=== PATIENT | male | born 1995 | race Caucasian/White ===

== ENCOUNTER 2018-04-08 13:22 | Emergency (ER) | payer OTHER ==
[2018-04-08] MEDS: PERCOCET 5MG/325MG TAB PO (13:37)
[2018-04-08] MEDS: MORPHINE 2 MG/ML 1ML SYRINGE (J2270) IV (13:39)
== END 2018-04-08 14:35 | disposition home or self-care (01) ==
LOC: M ED 13:22
DX: S70.02XA Contusion of left hip, initial encounter (principal); W17.89XA Other fall from one level to another, initial encounter; Y92.138 Other place on military base as the place of occurrence of the external cause; Y99.1 Military activity; Z88.6 Allergy status to analgesic agent; F17.210 Nicotine dependence, cigarettes, uncomplicated
CPT/HCPCS: J2270

== ENCOUNTER 2019-02-28 05:36 | Emergency (ER) | payer OTHER ==
[~2019-02-28] VITALS: Ht 175.3 cm; Wt 77.3 kg
[~2019-02-28 05:36] MED LIST: IBUP-1022 PO
[2019-02-28] MEDS ORDERED: GNPLIQ60 PO (05:42)
[2019-02-28] MEDS ORDERED: D-ME118L PO (05:42)
[2019-02-28] MEDS ORDERED: IBUPROFEN 600 MG TAB PO ONE (06:15)
[2019-02-28 06:58] LABS: INFLUENZA A AMPLIFICATION NEGATIVE (NEGATIVE); INFLUENZA B AMPLIFICATION NEGATIVE (NEGATIVE)
[2019-02-28 07:09] VITALS: BP 122/77
== END 2019-02-28 07:10 | disposition home or self-care (01) ==
LOC: M ED 05:36
DX: J02.9 Acute pharyngitis, unspecified (principal); R05 Cough; Z88.4 Allergy status to anesthetic agent; F17.210 Nicotine dependence, cigarettes, uncomplicated

== ENCOUNTER 2019-03-01 22:08 | Emergency (ER) | payer OTHER ==
[~2019-03-01] VITALS: Ht 175.3 cm; Wt 77.3 kg
[~2019-03-01 22:08] MED LIST changes: +D-ME118L PO; +GNPLIQ60 PO
[2019-03-02] MEDS ORDERED: AZIT-12 PO (01:34)
[2019-03-02 01:41] VITALS: BP 130/63
[2019-03-02] MEDS ORDERED: AZITHROMYCIN 250 MG TAB PO ONE (01:45)
--- NOTE | 2019-03-02 01:52 | REP ---
Clinical: Cough and shortness of breath . Comparison: None . Technique: PA and lateral. Findings: The mediastinum and cardiac silhouette are normal. The lung denise are clear and without acute consolidation, effusion, or pneumothorax. The skeletal structures are intact and normal. Impression: 1. No acute cardiopulmonary process. Electronically Signed by Alvin Rollins MD 03/02/2019 01:43 A
== END 2019-03-02 01:56 | disposition home or self-care (01) ==
LOC: M ED 22:08
DX: J06.9 Acute upper respiratory infection, unspecified (principal); F17.210 Nicotine dependence, cigarettes, uncomplicated; Z88.6 Allergy status to analgesic agent

== ENCOUNTER 2019-06-19 22:13 | Emergency (ER) | payer OTHER ==
[~2019-06-19] VITALS: Ht 175.3 cm; Wt 75.0 kg
[~2019-06-19 22:13] MED LIST changes: +AZIT-12 PO
[2019-06-19] MEDS ORDERED: DOXY100T (22:22)
[2019-06-19 22:44] LABS: BASO # 0.1 10^3/uL (0.0-0.2); BASO % 0.8 % (0.0-1.0); EOS # 0.2 10^3/uL (0.0-0.5); EOS % 3.3 % (0.0-3.0); HEMATOCRIT 48.8 % (42.0-52.0); HEMOGLOBIN 16.2 g/dl (13.5-17.5); LYMPH # 2.7 10^3/uL (1.5-5.0); MEAN CORPUSCULAR HEMOGLOBIN 28.9 pg (27.0-33.0); MEAN CORPUSCULAR HGB CONC 33.2 g/dl (32.0-36.5); MEAN CORPUSCULAR VOLUME 87.1 fl (80.0-96.0); MONO # 0.7 10^3/uL (0.0-0.8); MONO % 9.5 % (0.0-5.0); NEUTROPHILS # 3.4 10^3/uL (1.5-8.5); NEUTROPHILS % 48.3 % (36.0-66.0); PLATELET COUNT, AUTOMATED 242 10^3/uL (150-450); WHITE BLOOD COUNT 7.1 10^3/uL (4.0-10.0)
[2019-06-19 23:15] LABS: ALBUMIN 4.2 GM/DL (3.2-5.2); ALT/SGPT 21 U/L (12-78); BILIRUBIN,DIRECT < 0.1 MG/DL (0.0-0.2); BILIRUBIN,TOTAL 0.4 MG/DL (0.2-1.0); BLOOD UREA NITROGEN 14 MG/DL (7-18); CALCIUM LEVEL 9.1 MG/DL (8.5-10.1); CARBON DIOXIDE LEVEL 28 MEQ/L (21-32); CHLORIDE LEVEL 106 MEQ/L (98-107); CREATININE FOR GFR 1.12 MG/DL (0.70-1.30); GLOMERULAR FILTRATION RATE > 60.0 (>60); GLUCOSE, FASTING 76 MG/DL (70-100); LIPASE 145 U/L (73-393); POTASSIUM SERUM 4.9 MEQ/L (3.5-5.1); SODIUM LEVEL 140 MEQ/L (136-145); TOTAL PROTEIN 7.5 GM/DL (6.4-8.2)
[2019-06-20] MEDS ORDERED: MAALOX 30 ML SUSP *UDC PO ONE
[2019-06-20] MEDS ORDERED: PANTOPRAZOLE 40MG TAB (PROTONIX) PO ONE
[2019-06-20] MEDS ORDERED: SUCRALFATE 1 GM TAB PO ONE
[2019-06-20] MEDS ORDERED: ZANT150T40 PO (00:57)
[2019-06-20] MEDS ORDERED: CARA1TAB6 PO (00:57)
[2019-06-20 01:08] VITALS: BP 116/58
== END 2019-06-20 01:09 | disposition home or self-care (01) ==
LOC: M ED 22:13
DX: K92.1 Melena (principal); R10.13 Epigastric pain; R10.30 Lower abdominal pain, unspecified; Z88.4 Allergy status to anesthetic agent; Z79.899 Other long term (current) drug therapy

== ENCOUNTER 2019-08-08 07:54 | Emergency (ER) | payer OTHER ==
[~2019-08-08] VITALS: Ht 175.3 cm; Wt 79.9 kg
[~2019-08-08 07:54] MED LIST changes: +CARA1TAB6 PO; +DOXY100T; +ZANT150T40 PO
--- NOTE | 2019-08-08 08:46 | REP ---
Left knee five views : There is no fracture or dislocation. Mineralization and joint spaces are normal. There are no calcifications or foreign bodies. Impression: Negative left knee . Electronically Signed by Perez Velez MD 08/08/2019 08:37 A
[2019-08-08] MEDS ORDERED: IBUP-1022 PO (09:13)
[2019-08-08] MEDS ORDERED: IBUPROFEN 600 MG TAB PO ONE (09:15)
[2019-08-08 09:23] VITALS: BP 129/59
== END 2019-08-08 09:38 | disposition home or self-care (01) ==
LOC: M ED 07:54
DX: S83.8X2A Sprain of other specified parts of left knee, initial encounter (principal); X50.0XXA Overexertion from strenuous movement or load, initial encounter; Y93.02 Activity, running; Z88.4 Allergy status to anesthetic agent